=== PATIENT | male | born 1995 | race Caucasian/White ===

== ENCOUNTER 2016-07-27 14:54 | Emergency (ER) | payer BC, OTHER ==
--- NOTE | 2016-07-27 16:20 | EDM.PDOC ---
ED HPI RENAL/ - General Chief Complaint: Abdominal Pain Stated Complaint: RT SIDE PAIN Time Seen by Provider: 07/27/16 16:10 Source: Reports: Patient History Limitations: Reports: No limitations - History of Present Illness INITIAL COMMENTS - FREE TEXT/NARRATIVE: Jaren has sxs of R mid-lower abdominal pain that has colicky features over the past 4 weeks, with some radiation into the R teste. Today at the Clinic, his UA noted 4+ blood with protein. He has some burning with urination. An ultrasound of the abdomen confirmed a small stone on the R side, report unavailable as of this visit. He has an appt to see PCP this afternoon. He is currently asx. - Related Data Allergies/ADRs: Allergies Allergy/AdvReac Type Severity Reaction Status Date / Time No Known Allergies Allergy Verified 07/27/16 15:22 Home Meds: Home Meds NK [No Known Home Meds] 12/09/13 [History] Past Medical History - Past Health History Medical/Surgical History: Denies Medical/Surgical History - Infectious Disease History Infectious Disease History: Reports: Chicken pox Social & Family History - Tobacco Use Smoking Status *Q: Current Some Day Smoker Years of Tobacco use: 5 Packs/Tins Daily: 1 - Caffeine Use Caffeine Use: Reports: Energy drinks, Soda - Alcohol Use Number of Drinks Per Day: 8 - Recreational Drug Use Recreational Drug Use: No - Living Situation & Occupation Living situation: Reports: single ED ROS GENERAL - Review of Systems Review Of Systems: See Below Constitutional: Reports: no symptoms HEENT: Reports: No symptoms Respiratory: Reports: No Symptoms Cardiovascular: Reports: No symptoms Endocrine: Reports: no symptoms GI/Abdominal: Reports: Abdominal pain : Reports: other (pain in R teste) Musculoskeletal: Reports: no symptoms Skin: Reports: no symptoms Neurological: Reports: No Symptoms Psychiatric: Reports: No symptoms Hematologic/Lymphatic: Reports: no symptoms Immunologic: Reports: no symptoms ED EXAM, RENAL/ - Physical Exam Exam: See Below Exam Limited By: No limitations General Appearance: alert, WD/WN, no apparent distress Head: normocephalic Neck: normal inspection Respiratory/Chest: lungs clear Cardiovascular: regular rate, rhythm GI/Abdominal: normal bowel sounds, soft, no organomegaly, no distention, no mass , tender (mild tenderness RLQ) (Male) Exam: No hernia Rectal (Males) Exam: Deferred Back Exam: normal inspection Extremities: normal inspection Neurological: alert, oriented Psychiatric: normal affect, normal mood Skin Exam: Warm, Dry Lymphatic: no adenopathy Course - Vital Signs Text/Narrative:: Jaren was asx in the [facility] ED. No meds were administered. Last Recorded V/S: Last Vital Signs Temp 36.8 C 07/27/16 15:27 Pulse 80 07/27/16 15:27 Resp 20 07/27/16 15:27 BP 126/99 H 07/27/16 15:27 Pulse Ox 98 07/27/16 15:27 - Orders/Labs/Meds Orders: Active Orders 24 hr Category Date Time Status UA W/MICROSCOPIC [URIN] Stat Lab 07/27/16 15:23 Uncollected Departure - Departure Time of Disposition: 16:20 Disposition: Home, Self-Care 01 Condition: good Clinical Impression: Ureterolithiasis Forms: ED Department Discharge - Problem List & Annotations (1) Ureterolithiasis SNOMED Code(s): 08522293 Code(s): N20.1 - CALCULUS OF URETER Status: Acute Current Visit: Yes Annotation/Comment:: Follow up with PCP. - Problem List Review Problem List Initiated/Reviewed/Updated: Yes - My Orders Last 24 Hours: My Active Orders 07/27/16 15:23 UA W/MICROSCOPIC [URIN] Stat - Assessment/Plan Last 24 Hours: My Active Orders 07/27/16 15:23 UA W/MICROSCOPIC [URIN] Stat Plan: Follow up with referral to Urology.
[2016-07-27 16:24] VITALS: BP 125/78
== END 2016-07-27 16:20 | disposition home or self-care (01) ==
LOC: FB.ED 14:54
DX: N20.1 Calculus of ureter (principal); F17.210 Nicotine dependence, cigarettes, uncomplicated
CPT/HCPCS: 99284

== ENCOUNTER 2016-08-14 00:26 | Emergency (ER) | payer OTHER ==
[2016-08-14] MEDS ORDERED: Ondansetron 4 MG/2 ML SDV IVPUSH ONE (00:43)
[2016-08-14] MEDS ORDERED: Sodium Chloride 0.9% 1,000 ML IV SCH ×2 (01:00→02:30)
[2016-08-14] MEDS ORDERED: HYDROmorphone 2 MG/ML SDV IVPUSH ONE (01:14)
[2016-08-14 02:20] VITALS: BP 124/72
[2016-08-14] MEDS ORDERED: Ketorolac 30 MG/ML SDV IVPUSH ONE (02:20)
[2016-08-14] MEDS ORDERED: Acetaminophen/HYDROcodone 325-5 MG Tab PO ONE (02:39)
[2016-08-14] MEDS ORDERED: fentaNYL 100 MCG/2 ML SDV IVPUSH ONE (02:49)
[2016-08-14] MEDS ORDERED: HYDROmorphone 2 MG/ML SDV IVPUSH PRN (02:51)
[2016-08-14] MEDS ORDERED: Ondansetron 4 MG/2 ML SDV IV PRN (02:51)
--- NOTE | 2016-08-14 04:12 | ER ---
DATE SEEN: 08/14/2016 CHIEF COMPLAINT: Left lower quadrant abdominal pain. HISTORY OF PRESENT ILLNESS: This is a 21-year-old male with left flank pain since this morning. [id number] pain, nothing seems to improve it. Has had hematuria on and off for 2 months, and was in the ER 2 weeks ago due to acute ureterolithiasis. No fever or chills. REVIEW OF SYSTEMS: Has nausea, 1 episode of vomiting, and some constipation. CURRENT MEDICATIONS: Tylenol No. 3. ALLERGIES: None. PHYSICAL EXAMINATION: GENERAL: Appears very uncomfortable. VITAL SIGNS: His blood pressure is normal. His temperature is 98.6. ABDOMEN: Soft with tenderness in the left lower quadrant. SKIN: Pale. LABORATORY DATA: CBC and CMP normal. CT abdomen and pelvis revealed a 3 to 4 mm sized ureteric stone. IMPRESSION: Kidney stone. PLAN: 2 L of normal saline, 2 mg of IV Dilaudid, Toradol 30 mg. The patient will be sent home on hydrocodone to use as needed. See Dr. Pavon on Monday. \ ED COURSE Patient initially was extremely anxious,pain was uncontrolled. We wmade a decision to admit him for pain control. After an hour,his pain was stable enough ,so the admission was cancelled TIME SEEN: 0100 hours. /[id number] TA/VENITA FERRIS
== END 2016-08-14 04:10 | disposition home or self-care (01) ==
LOC: FB.ED 00:26 → UNDOADMOB 02:51 → FB.MS 02:51 → FB.ED 04:10
DX: N13.2 Hydronephrosis with renal and ureteral calculous obstruction (principal)
CPT/HCPCS: 36415; 74177; 80048; 80305; 81001; 85025; 96361; 96374; 96375; 99284; A9270; J1170; J1885; J2405; J7040

== ENCOUNTER 2016-08-17 02:39 | Emergency (ER) | payer OTHER ==
[2016-08-17] MEDS ORDERED: Ondansetron 4 MG/2 ML SDV IVPUSH ONE (02:49)
[2016-08-17] MEDS ORDERED: fentaNYL 100 MCG/2 ML SDV IVPUSH ONE (02:50)
[2016-08-17] MEDS ORDERED: Sodium Chloride 0.9% 1,000 ML IV SCH (03:00)
[2016-08-17 03:20] VITALS: BP 129/99
[2016-08-17] MEDS ORDERED: Ketorolac 10 MG Tab PO ONE (04:12)
--- NOTE | 2016-08-18 03:01 | ER ---
DATE SEEN: 08/17/2016 REASON FOR VISIT: Left lower quadrant abdominal pain. HISTORY OF PRESENT ILLNESS: A 21-year-old male, whom I saw recently for ureteric calculi on the left side. After 2 L of fluids, he went home, but he returns today because the pain has returned few hours ago. Hydrocodone is not helping. It is exactly located in the same place in the left lower quadrant. Please see the note from 08/13/2016. REVIEW OF SYSTEMS: Some nausea. Denies any fever, chills, diarrhea. MEDICATIONS: Reviewed. ALLERGIES: None. PHYSICAL EXAMINATION: VITAL SIGNS: Blood pressure is normal. Temperature is 97.3. MENTAL STATUS: Anxious. SKIN: Pallor and clammy skin. GENERAL: Appears uncomfortable. NEUROLOGIC: Normal. LABORATORY DATA: None. IMPRESSION: Ureteric calculi. PLAN: I gave one more liter of normal saline, 100 mcg of fentanyl and Zofran IV. His symptoms improved. I will send him home on 10 mg of Toradol t.i.d. p.r.n. He had an appointment with Urology yesterday which he did not keep. I advised him to call and reschedule as needed. TIME SEEN: 0230 hours. /[id number] TA/VENITA
== END 2016-08-17 04:20 | disposition home or self-care (01) ==
LOC: FB.ED 02:39
DX: N20.1 Calculus of ureter (principal)
CPT/HCPCS: 96361; 96374; 96375; 99283; A9270; J2405; J3010; J7040

== ENCOUNTER 2017-09-08 04:02 | Emergency (ER) | payer OTHER ==
--- NOTE | 2017-09-08 04:22 | EDM.PDOC ---
ED HPI GENERAL MEDICAL PROBLEM - General Chief Complaint: Genitourinary Problem Stated Complaint: LOWER BACK PAIN Time Seen by Provider: 09/08/17 04:21 Source of Information: Reports: Patient, Family History Limitations: Reports: No Limitations - History of Present Illness INITIAL COMMENTS - FREE TEXT/NARRATIVE: Jaren comes into [facility] ED with acute onset of RLQ pain with radiation into RCVA and R teste. Pain is colicky in nature, without vomiting or diarrhea. He has tried no meds. Of interest is a PMH of L ureterolithiasis during July 2016, for which he passed an opaque stone. - Related Data Allergies Allergy/AdvReac Type Severity Reaction Status Date / Time No Known Allergies Allergy Verified 08/17/16 02:53 Home Meds: Home Meds Hydrocodone/Acetaminophen [Hydrocodon-Acetaminophen 5-325] 1 tab Q4H PRN [History] Tamsulosin HCl [Flomax] 0.4 mg PO DAILY #7 cap.er.24h 09/08/17 [Rx] Past Medical History - Past Health History Medical/Surgical History: Denies Medical/Surgical History Respiratory History: Reports: Asthma Genitourinary History: Reports: Renal Calculus Other Genitourinary History: L kidney stones. Neurological History: Reports: Migraines - Infectious Disease History Infectious Disease History: Reports: Chicken Pox Social & Family History - Family History Family Medical History: Noncontributory - Caffeine Use Caffeine Use: Reports: Soda Other Caffeine Use: Pt drinks two cups of coffee. - Living Situation & Occupation Living situation: Reports: Single ED ROS GENERAL - Review of Systems Review Of Systems: See Below Constitutional: Reports: Malaise, Decreased Appetite HEENT: Reports: No Symptoms Respiratory: Reports: No Symptoms Cardiovascular: Reports: No Symptoms Endocrine: Reports: No Symptoms GI/Abdominal: Reports: Abdominal Pain, Decreased Appetite : Reports: Pain, Other (R CVA pain) Musculoskeletal: Reports: No Symptoms Skin: Reports: No Symptoms Neurological: Reports: No Symptoms Psychiatric: Reports: No Symptoms Hematologic/Lymphatic: Reports: No Symptoms Immunologic: Reports: No Symptoms ED EXAM, RENAL/ - Physical Exam Exam: See Below Exam Limited By: Physical Impairment General Appearance: Alert, WD/WN, Anxious, Moderate Distress Eye Exam: Bilateral Eye: EOMI, Normal Inspection, PERRL Ears: Normal External Exam Nose: Normal Inspection Throat/Mouth: Normal Inspection, Normal Oropharynx, Normal Voice Head: Normocephalic Neck: Normal Inspection, Supple Respiratory/Chest: Lungs Clear Cardiovascular: Regular Rate, Rhythm, No Murmur GI/Abdominal: Normal Bowel Sounds, Soft, Guarding, Tender (RLQ and R lower back) (Male) Exam: No Hernia Rectal (Males) Exam: Deferred Back Exam: Normal Inspection Extremities: Normal Inspection Neurological: Alert, Oriented, CN II-XII Intact, Normal Cognition, No Motor/ Sensory Deficits Psychiatric: Anxious Skin Exam: Warm, Dry, Intact Lymphatic: No Adenopathy Course - Vital Signs Text/Narrative:: Screening lab reports were satisfactory, UA pending. A Abd-Pelvic CT w contrast demonstrated a 2 mm stone in the R ureter, and 2 small stones in the L kidney. I administered Dilaudid 2 mg x 2 and Flomax 0.4 mg po during ED visit. Last Recorded V/S: Last Vital Signs Temp 36.2 C 09/08/17 04:08 Pulse 81 09/08/17 04:08 Resp 16 09/08/17 04:08 BP 153/103 H 09/08/17 04:08 Pulse Ox 99 09/08/17 04:08 - Orders/Labs/Meds Orders: Active Orders 24 hr Category Date Time Status Abdomen Pelvis wo Cont [CT] Stat Exams 09/08/17 05:31 Taken UA W/MICROSCOPIC [URIN] Stat Lab 09/08/17 04:20 Ordered Sodium Chloride 0.9% [Normal Saline] 1,000 ml Med 09/08/17 04:30 Active IV ASDIRECTED Sodium Chloride 0.9% [Normal Saline] 1,000 ml Med 09/08/17 05:45 Active IV ASDIRECTED Sodium Chloride 0.9% [Saline Flush] Med 09/08/17 04:27 Active 10 ml FLUSH ASDIRECTED PRN Peripheral IV Insertion Adult [OM.PC] Routine Oth 09/08/17 04:27 Ordered Medication Orders Sodium Chloride (Normal Saline) 1,000 mls @ 999 mls/hr IV ASDIRECTED YOMAIRA Last Admin: 09/08/17 04:38 Dose: 999 mls/hr Sodium Chloride (Normal Saline) 1,000 mls @ 500 mls/hr IV ASDIRECTED YOMAIRA Last Admin: 09/08/17 05:38 Dose: 500 mls/hr Sodium Chloride (Saline Flush) 10 ml FLUSH ASDIRECTED PRN PRN Reason: Keep Vein Open Labs: Laboratory Tests 09/08/17 09/08/17 Range/Units 04:35 04:35 WBC 12.0 (4.5-12.0) X10-3/uL RBC 5.20 (4.30-5.75) x10(6)uL Hgb 16.1 H (11.5-15.5) g/dL Hct 48.0 (30.0-51.3) % MCV 92.3 (80-96) fL MCH 31.0 (27.7-33.6) pg MCHC 33.6 (32.2-35.4) g/dL RDW 13.0 (11.5-15.5) % Plt Count 266 (125-369) X10(3)uL MPV 8.4 (7.4-10.4) fL Neut % (Auto) 55.8 (46-82) % Lymph % (Auto) 31.5 (13-37) % Frio % (Auto) 6.5 (4-12) % Eos % (Auto) 6 H (1.0-5.0) % Baso % (Auto) 1 (0-2) % Neut # (Auto) 6.6 (1.6-8.3) # Lymph # (Auto) 3.8 (0.6-5.0) # Frio # (Auto) 0.8 (0.0-1.3) # Eos # (Auto) 0.7 (0.0-0.8) # Baso # (Auto) 0.1 (0.0-0.2) # Sodium 141 (135-145) mmol/L Potassium 4.2 (3.5-5.3) mmol/L Chloride 105 (100-110) mmol/L Carbon Dioxide 28 (21-32) mmol/L BUN 16 (7-18) mg/dL Creatinine 0.9 (0.70-1.30) mg/dL Est Cr Clr Drug Dosing TNP Estimated GFR (MDRD) > 60 (>60) BUN/Creatinine Ratio 17.8 (9-20) Glucose 102 (80-116) mg/dL Calcium 8.9 (8.6-10.2) mg/dL Meds: Medications Generic Name Dose Route Start Last Admin Trade Name Freq PRN Reason Stop Dose Admin Sodium Chloride 1,000 mls @ 999 mls/hr 09/08/17 04:30 09/08/17 04:38 Normal Saline IV 999 mls/hr ASDIRECTED YOMAIRA Administration Sodium Chloride 1,000 mls @ 500 mls/hr 09/08/17 05:45 09/08/17 05:38 Normal Saline IV 500 mls/hr ASDIRECTED YOMAIRA Administration Sodium Chloride 10 ml 09/08/17 04:27 Saline Flush FLUSH ASDIRECTED PRN Keep Vein Open Discontinued Medications Generic Name Dose Route Start Last Admin Trade Name Freq PRN Reason Stop Dose Admin Hydromorphone HCl 2 mg 09/08/17 04:27 09/08/17 04:45 Dilaudid IVPUSH 09/08/17 04:28 2 mg ONETIME ONE Administration Hydromorphone HCl 2 mg 09/08/17 06:22 09/08/17 06:26 Dilaudid IVPUSH 09/08/17 06:23 2 mg ONETIME ONE Administration Tamsulosin HCl 0.4 mg 09/08/17 06:30 09/08/17 06:36 Flomax PO 09/08/17 06:31 0.4 mg ONETIME ONE Administration Departure - Departure Time of Disposition: 06:39 Disposition: Home, Self-Care 01 Condition: Fair Clinical Impression: Ureterolithiasis - Discharge Information Prescriptions: Tamsulosin HCl [Flomax] 0.4 mg PO DAILY #7 cap.er.24h Referrals: Cole Pavon MD [Primary Care Provider] - Forms: ED Department Discharge - Problem List & Annotations (1) Ureterolithiasis SNOMED Code(s): 42698132 Code(s): N20.1 - CALCULUS OF URETER Status: Acute Current Visit: Yes Annotation/Comment:: I suggested NSAIDs for pain, dispensed Flomax 0.4 mg qd, and hydration. Strain all urine. - Problem List Review Problem List Initiated/Reviewed/Updated: Yes - My Orders Last 24 Hours: My Active Orders 09/08/17 04:20 UA W/MICROSCOPIC [URIN] Stat 09/08/17 04:27 Sodium Chloride 0.9% [Saline Flush] 10 ml FLUSH ASDIRECTED PRN Peripheral IV Insertion Adult [OM.PC] Routine 09/08/17 04:30 Sodium Chloride 0.9% [Normal Saline] 1,000 ml IV ASDIRECTED 09/08/17 05:31 Abdomen Pelvis wo Cont [CT] Stat 09/08/17 05:45 Sodium Chloride 0.9% [Normal Saline] 1,000 ml IV ASDIRECTED - Assessment/Plan Last 24 Hours: My Active Orders 09/08/17 04:20 UA W/MICROSCOPIC [URIN] Stat 09/08/17 04:27 Sodium Chloride 0.9% [Saline Flush] 10 ml FLUSH ASDIRECTED PRN Peripheral IV Insertion Adult [OM.PC] Routine 09/08/17 04:30 Sodium Chloride 0.9% [Normal Saline] 1,000 ml IV ASDIRECTED 09/08/17 05:31 Abdomen Pelvis wo Cont [CT] Stat 09/08/17 05:45 Sodium Chloride 0.9% [Normal Saline] 1,000 ml IV ASDIRECTED Plan: Follow up with PCP.
[2017-09-08] MEDS ORDERED: HYDROmorphone 2 MG/ML SDV IVPUSH ONE ×2 (04:27→06:22)
[2017-09-08] MEDS ORDERED: Sodium Chloride 0.9% 10 ML Syringe FLUSH PRN (04:27)
[2017-09-08] MEDS ORDERED: Sodium Chloride 0.9% 1,000 ML IV SCH ×2 (04:30→05:45)
[2017-09-08] MEDS ORDERED: Tamsulosin 0.4 MG Cap.ER PO ONE (06:30)
[2017-09-08] MEDS ORDERED: Ondansetron 4 MG Tab.DIS PO ONE (06:53)
[2017-09-08 07:24] VITALS: BP 145/95
== END 2017-09-08 07:00 | disposition home or self-care (01) ==
LOC: FB.ED 04:02
DX: N13.2 Hydronephrosis with renal and ureteral calculous obstruction (principal); Z79.899 Other long term (current) drug therapy
CPT/HCPCS: 36415; 74176; 80048; 85025; 96361; 96374; 96376; 99284; A9270; J1170; J7030

== ENCOUNTER 2017-09-15 21:33 | Emergency (ER) | payer OTHER ==
[2017-09-15] MEDS ORDERED: Ketorolac 30 MG/ML SDV IVPUSH ONE (22:26)
[2017-09-15] MEDS ORDERED: Sodium Chloride 0.9% 1,000 ML IV SCH (22:30)
[2017-09-15] MEDS ORDERED: Sodium Chloride 0.9% 10 ML Syringe FLUSH PRN (22:33)
[2017-09-15] MEDS ORDERED: Morphine 2 MG/ML Syringe IVPUSH PRN (23:12)
[2017-09-15] MEDS ORDERED: Metoclopramide 10 MG/2 ML SDV IVPUSH ONE (23:13)
[2017-09-15] MEDS ORDERED: Tamsulosin 0.4 MG Cap.ER PO ONE (23:13)
[2017-09-15] MEDS ORDERED: Acetaminophen/oxyCODONE 325-5 MG Tab PO ONE (23:37)
[2017-09-16 00:19] VITALS: BP 124/71
--- NOTE | 2017-09-18 10:55 | ER ---
DATE SEEN: 09/15/2017 TIME SEEN: The patient was seen at 2145 hours. HISTORY OF PRESENT ILLNESS: This pleasant 22-year-old nonsmoking male comes in with a history of onset of kidney pain with renal stone, onset 0400 hours, 09/07/2017. This had been followed by passing a stone later that day after he had taken Flomax. He has not taken Flomax since. Since then, he was seen in clinic on 09/12. He did not feel very well and it was thought by the clinician to be secondary to low blood glucose. He was again seen in clinic on 09/14 and again thought to have low glucose as he was waking up early in the morning and his glucose was low. His diet has not changed. On 09/13, he had more recurrence of pain. On 09/15 today, has 10/10 discomfort, onset at approximately 1800 hours tonight, it was earlier on 08/03, but has increased to 10/10. He knows that he has pain in his penis. He has pain when he tries to pass urine. He is able to pass urine and his stream is not compromised, but he has pain in his proximal penis. He also has right flank pain this evening that is 8/10 in intensity, not as bad as it was "last week." One year ago, had a renal stone. On 08/24/2016, he had a small right ureteral stone documented on ultrasound. More recently, on 09/07/17, on reviewing the CAT scan, he has 2 stones in his left kidney and 3 stones in his right kidney, and particularly on that day had a right ureteral stone approximately 7 cm from the ureterovesical junction. ALLERGIES: None. He notes the last time he was in the hospital in the emergency room on the day that he had stones discomfort on 09/07, he received intravenous Dilaudid and he vomited for 18 to 20 hours. He has medical intolerance of Dilaudid and does not want any Dilaudid today for pain medicine. The patient notes that he has not been drinking adequate fluids. He does not drink 2 quarts of fluids a day. He works in a fairly warm environment at [employer], which is a [employer] and he acknowledges he has not been hydrating himself adequately with this warm weather. He has not had Flomax since 09/07/2017. REVIEW OF SYSTEMS: Otherwise is negative. PHYSICAL EXAMINATION: VITAL SIGNS: Blood pressure is 136/78; heart rate 81; respirations 18; oxygen saturation 100%-98%, no oxygen, the patient on room air; and temperature is 36.7 degrees centigrade. GENERAL: The patient has marked pain. He is in a position. He is attended by his . HEENT: PERRLA intact. Pupils react to light. Not pinpoint. Pharynx without abnormality, mild dry oral mucosa. No cervical adenopathy, thyromegaly, or masses of neck. No bruits. No tracheal tug. LUNGS: Clear without rales, rhonchi, or wheezes. HEART: S1, S2. No murmur. No irregularity and rhythm. No tachycardia. ABDOMEN: Soft. No guarding, no rebound. Right flank is tender to percussion, 8/10 discomfort. He has mild left flank discomfort. Bowel sounds are present in the abdomen and no hernia demonstrated. : Testes bilaterally descended. Penis circumcised. EXTREMITIES: Lower extremities without abnormality. Deep tendon reflexes normal. ADDITIONAL IMPORTANT COMMENTS: Brother was diagnosed with testicular cancer and had a right orchiectomy. Mother and father are healthy. LABORATORY FINDINGS: White count 12,200, PMNs 57, lymphocytes 32, monos 6, eosinophils 6. Complete metabolic panel normal with a GFR greater than 60 and a creatinine 1.0, BUN 17. ASSESSMENT: 1. The patient has recurrent pain that would suggest he has passed the stone into his bladder and he has a stone that was documented 2 mm before on 09/07/2017. Perhaps, this was stuck up in the urethra. At this point, it is difficult to ascertain. He has had 3 CAT scans before this, consequently with a history of chronic recurrent intermittent stones, I prefer not to treat him, not to perform another CAT scan as he is not in extremis nor is he febrile at this point. Consequently, immediate intervention is not indicated. 2. He has multiple stones in his kidney, right were 3 and left 2 - he is a stone former. 3. Most likely, he has passed the right ureteral stone that was seen on 09/07/2017 into the bladder as his right flank pain relented. 4. He has passed the stone before, tried to get it analyzed, but he lost it and fell on the floor and could not find it, so we do not know what kind of stones he is forming. It is presumed that it is calcium oxalate (80% to 85%) stones. 5. The patient does not have sepsis or infection. Consequently, probably could manage at home. 6. At present, he did not respond to a dose of Toradol. Consequently, he has been given a dose of 2 mg morphine. He will use Toradal as needed and also given a dose of Flomax 0.4 mg. He is to strain his urine, bring his urine specimen stone to the hospital when collected. 7. It is possible he may not pass his renal stone and may require further urology consultation. At this point, the patient would like to be conservative in his intervention and would try to pass the stone. He is willing to go home and take pain medicines and strain his urine with use of Flomax. I am optimistic that perhaps he will be able to pass the stone. 8. It is very likely to have recurrent intermittent stones in the future, so it is important that he has analysis of his stones. 9. Dilaudid - hx of chemical reaction of marked violent vomiting. He is chemically allergic to Dilaudid. 10.His brother had testicular cancer. The patient testicular examination demonstrates orchiectomy to and no masses were demonstrated. At this point, no suggestion of urinary tract infection. The patient dismissed to follow with doctor in 24 to 72 hours if markedly worse, otherwise, in 1 week. The patient will attempt to try to pass the stone if this is unmanageable for him. He will be returning for further evaluation and possible urological consultation on an emergent basis. /[id number] LORA/VENITA FERRIS
== END 2017-09-16 00:57 | disposition home or self-care (01) ==
LOC: FB.ED 21:33
DX: N20.2 Calculus of kidney with calculus of ureter (principal); Z87.442 Personal history of urinary calculi
CPT/HCPCS: 36415; 80053; 81001; 85025; 96361; 96374; 96375; 99283; A9270; J1885; J2270; J2765; J7030; J7050

== ENCOUNTER 2019-01-02 07:14 | Day surgery (SDC) | payer BC, OTHER ==
[2019-01-02] MEDS ORDERED: Lidocaine 2% 100 MG/5 ML Syringe IVPUSH ONE (07:15)
[2019-01-02] MEDS ORDERED: Ondansetron 4 MG/2 ML SDV IVPUSH ONE (07:15)
[2019-01-02] MEDS ORDERED: Propofol 200 MG/20 ML SDV IV ONE (07:15)
[2019-01-02] MEDS ORDERED: Sodium Chloride 0.9% 10 ML Syringe FLUSH PRN (07:15)
[2019-01-02] MEDS ORDERED: Lactated Ringers 1,000 ML IV SCH (07:15)
--- NOTE | 2019-01-02 08:48 | PCM.OPNOTE ---
- General Post-Op/Procedure Note Date of Surgery/Procedure: 01/02/19 Operative Procedure(s): egd with bx Findings: gastritis Pre Op Diagnosis: hematemasis Post-Op Diagnosis: gastritis Anesthesia Technique: MAC Primary Surgeon: Avi Bartholomew Anesthesia Provider: Jayashree Brown Pathology: stomach Complications: None Condition: Good Free Text/Narrative:: see dictation
[2019-01-02 09:51] VITALS: BP 123/75; PULSE 60
--- NOTE | 2019-01-02 11:38 | OR ---
DATE OF OPERATION: 01/02/2019 SURGEON: Avi Bartholomew MD PROCEDURE PERFORMED: EGD with cold forceps biopsy. PREOPERATIVE DIAGNOSIS: History of hematemesis. POSTOPERATIVE DIAGNOSIS: Gastritis determined by endoscopy. INDICATIONS FOR PROCEDURE: This is a 23-year-old white male who was referred with some history of some epigastric discomfort, some nausea, as well as some bloody emesis. He was offered and accepted an EGD. DESCRIPTION OF OPERATION: After an excellent IV sedation was administered, the bite block was inserted. The flexible endoscope was passed without difficulty down the patient's esophagus into the stomach. Stomach was insufflated. Scope passed through the pylorus, second portion of the duodenum, and slowly withdrawn. The following findings were noted. The duodenum was unremarkable. The stomach demonstrated some mild gastritis in the stomach. Biopsies were taken. GE junction measured at 40 cm. Esophagus was unremarkable. Stomach was deflated. Scope was removed. Results by letter. /[id number] /MODL
== END 2019-01-02 09:51 | disposition home or self-care (01) ==
LOC: FB.SDS 07:14
PROVIDERS: ATTEND Surgery
DX: K29.51 Unspecified chronic gastritis with bleeding (principal); K31.89 Other diseases of stomach and duodenum; J45.909 Unspecified asthma, uncomplicated; F17.290 Nicotine dependence, other tobacco product, uncomplicated
CPT/HCPCS: 43239; 88305; 88342; J2001; J2405; J2704; J7120

== ENCOUNTER 2019-06-04 03:41 | Emergency (ER) | payer BC ==
[2019-06-04] MEDS ORDERED: Tamsulosin 0.4 MG Cap.ER PO ONE (04:11)
[2019-06-04] MEDS ORDERED: Sodium Chloride 0.9% 1,000 ML IV SCH ×2 (04:15→06:15)
[2019-06-04] MEDS ORDERED: methylPREDNISolone Sodium Succinate 125 MG/2 ML SDV IVPUSH ONE (04:21)
[2019-06-04] MEDS: HYDROmorphone 2 MG/ML SDV IVPUSH ONE ×2 (04:35→04:43)
[2019-06-04] MEDS ORDERED: Morphine 2 MG/ML Syringe IVPUSH STA (04:43)
[2019-06-04 05:01] VITALS: BP 138/84; PULSE 69
--- NOTE | 2019-06-04 06:35 | EDM.PDOC ---
ED HPI GENERAL MEDICAL PROBLEM - General Chief Complaint: Genitourinary Problem Stated Complaint: groin pain Time Seen by Provider: 06/04/19 04:00 Source of Information: Reports: Patient History Limitations: Reports: No Limitations - History of Present Illness INITIAL COMMENTS - FREE TEXT/NARRATIVE: pain in the left flank radiating to the left groin states it pains up to the tip of mihai penis no dysuria , no hematuria states he has history of renal calculi Duration: Hour(s): Quality: Reports: Ache, Dull, Throbbing Severity: Moderate Improves with: Reports: Heat Therapy Worsens with: Reports: Movement Associated Symptoms: Reports: Malaise, Nausea/Vomiting penis Pain Score (Numeric/FACES): 3 - Related Data Allergies Allergy/AdvReac Type Severity Reaction Status Date / Time No Known Allergies Allergy Verified 01/02/19 07:27 Home Meds: Home Meds Tamsulosin HCl [Flomax] 0.4 mg PO DAILY #30 cap.er.24h 06/04/19 [Rx] Past Medical History - Past Health History Medical/Surgical History: Denies Medical/Surgical History HEENT History: Reports: Allergic Rhinitis, Impaired Vision Cardiovascular History: Reports: None Respiratory History: Reports: Asthma Gastrointestinal History: Reports: None Genitourinary History: Reports: Renal Calculus Other Genitourinary History: L kidney stones. Musculoskeletal History: Reports: None Neurological History: Reports: Migraines Psychiatric History: Reports: None Endocrine/Metabolic History: Reports: None Hematologic History: Reports: None Immunologic History: Reports: None Oncologic (Cancer) History: Reports: None Dermatologic History: Reports: None - Infectious Disease History Infectious Disease History: Reports: Chicken Pox - Past Surgical History Head Surgeries/Procedures: Reports: None HEENT Surgical History: Reports: None Cardiovascular Surgical History: Reports: None Respiratory Surgical History: Reports: None GI Surgical History: Reports: None Male Surgical History: Reports: None Endocrine Surgical History: Reports: None Neurological Surgical History: Reports: None Musculoskeletal Surgical History: Reports: None Oncologic Surgical History: Reports: None Dermatological Surgical History: Reports: None Social & Family History - Family History Family Medical History: Noncontributory - Tobacco Use Smoking Status *Q: Current Every Day Smoker Years of Tobacco use: 0 Packs/Tins Daily: 0 - Caffeine Use Caffeine Use: Reports: Coffee, Soda Other Caffeine Use: Pt drinks two cups of coffee. - Recreational Drug Use Recreational Drug Use: No - Living Situation & Occupation Living situation: Reports: Single ED ROS GENERAL - Review of Systems Review Of Systems: Comprehensive ROS is negative, except as noted in HPI. ED EXAM, RENAL/ - Physical Exam Exam: See Below Exam Limited By: No Limitations General Appearance: Alert, WD/WN, No Apparent Distress Eye Exam: Bilateral Eye: EOMI Ears: Normal External Exam Nose: Normal Inspection Throat/Mouth: Normal Inspection, Normal Oropharynx Head: Atraumatic Neck: Supple, Non-Tender Respiratory/Chest: Lungs Clear, Normal Breath Sounds Cardiovascular: Regular Rate, Rhythm GI/Abdominal: No Distention, Tender (in the left flank). No: Distended, Guarding, Hernia (Male) Exam: No Hernia, Scrotum Tenderness (R). No: Scrotum Tenderness (L), Suprapubic Fullness, Testicular Tenderness (R) Extremities: Normal Inspection Neurological: Alert, Oriented Psychiatric: Normal Affect Course - Vital Signs Last Recorded V/S: Last Vital Signs Temp 36.4 C 06/04/19 03:54 Pulse 69 06/04/19 03:54 Resp 14 06/04/19 03:54 BP 138/84 06/04/19 03:54 Pulse Ox 100 06/04/19 03:54 - Orders/Labs/Meds Orders: Active Orders 24 hr Category Date Time Status Abdomen Pelvis w Cont [CT] Stat Exams 06/04/19 04:29 Taken Labs: Laboratory Tests 06/04/19 06/04/19 06/04/19 Range/Units 04:40 04:40 06:02 WBC 7.9 (4.5-12.0) X10-3/uL RBC 4.87 (4.30-5.75) x10(6)uL Hgb 14.7 (13.5-17.8) g/dL Hct 44.6 (30.0-51.3) % MCV 91.5 (80-96) fL MCH 30.2 (27.7-33.6) pg MCHC 33.0 (32.2-35.4) g/dL RDW 12.8 (11.5-15.5) % Plt Count 272 (125-369) X10(3)uL MPV 7.7 (7.4-10.4) fL Neut % (Auto) 57.0 (46-82) % Lymph % (Auto) 29.5 (13-37) % [place] % (Auto) 7.0 (4-12) % Eos % (Auto) 5 (1.0-5.0) % Baso % (Auto) 2 (0-2) % Neut # (Auto) 4.5 (1.6-8.3) # Lymph # (Auto) 2.3 (0.6-5.0) # [place] # (Auto) 0.6 (0.0-1.3) # Eos # (Auto) 0.4 (0.0-0.8) # Baso # (Auto) 0.1 (0.0-0.2) # Sodium 142 (135-145) mmol/L Potassium 4.4 (3.5-5.3) mmol/L Chloride 106 (100-110) mmol/L Carbon Dioxide 29 (21-32) mmol/L BUN 11 (7-18) mg/dL Creatinine 0.9 (0.70-1.30) mg/dL Est Cr Clr Drug Dosing TNP Estimated GFR (MDRD) > 60 (>60) BUN/Creatinine Ratio 12.2 (9-20) Glucose 91 (80-116) mg/dL Calcium 8.9 (8.6-10.2) mg/dL Urine Color Yellow (YELLOW) Urine Appearance Cloudy (CLEAR) Urine pH 6.0 (5.0-6.5) Ur Specific [place] 1.020 (1.010-1.025) Urine Protein Negative (NEGATIVE) mg/dL Urine Glucose (UA) Normal (NORMAL) mg/dL Urine Ketones Negative (NEGATIVE) mg/dL Urine Occult Blood Large H (NEGATIVE) Urine Nitrite Negative (NEGATIVE) Urine Bilirubin Negative (NEGATIVE) Urine Urobilinogen Normal (NEGATIVE) mg/dL Ur Leukocyte Esterase Negative (NEGATIVE) Urine RBC >100 H (0-5) Urine WBC 0-5 (0-5) Ur Squamous Epith Cells Few H (NS,R,O) Urine Bacteria Few H (NS) Urine Mucus Moderate H (NS) Meds: Medications Discontinued Medications Generic Name Dose Route Start Last Admin Trade Name Freq PRN Reason Stop Dose Admin Hydromorphone HCl 1 mg 06/04/19 04:31 06/04/19 04:43 Dilaudid IVPUSH 03/10/20 04:32 Not Given ONETIME ONE Sodium Chloride 1,000 mls @ 999 mls/hr 06/04/19 04:15 06/04/19 04:33 Normal Saline IV 999 mls/hr ASDIRECTED YOMAIRA Administration Sodium Chloride 1,000 mls @ 999 mls/hr 06/04/19 06:15 06/04/19 06:07 Normal Saline IV 999 mls/hr ASDIRECTED YOMAIRA Administration Methylprednisolone Sodium Succinate 125 mg 06/04/19 04:21 06/04/19 04:33 Solu-Medrol IVPUSH 06/04/19 04:22 125 mg ONETIME ONE Administration Morphine Sulfate 1 mg 06/04/19 04:43 06/04/19 04:49 Morphine IVPUSH 06/04/19 04:44 1 mg NOW STA Administration Tamsulosin HCl 0.4 mg 06/04/19 04:11 06/04/19 04:33 Flomax PO 06/04/19 04:12 0.4 mg ONETIME ONE Administration - Re-Assessments/Exams Free Text/Narrative Re-Assessment/Exam: 06/04/19 18:59 CT abd done: renal calculi in the UVJ or bladder pt given fluids will discharge home on flomax and to FU w PCP Departure - Departure Time of Disposition: 06:35 Disposition: Home, Self-Care 01 Condition: Fair Clinical Impression: Kidney stone, Calculus of left kidney - Discharge Information *PRESCRIPTION DRUG MONITORING PROGRAM REVIEWED*: Not Applicable *COPY OF PRESCRIPTION DRUG MONITORING REPORT IN PATIENT DARLYN: Not Applicable Prescriptions: Tamsulosin HCl [Flomax] 0.4 mg PO DAILY #30 cap.er.24h Referrals: Cole Pavon MD [Primary Care Provider] - Forms: ED Department Discharge Additional Instructions: 1) continue with increased fluid intake Continue to strain urine Make appt to see your doctor Sepsis Event Note - Evaluation Sepsis Screening Result: No Definite Risk - Focused Exam Date Exam was Performed: 06/04/19 Time Exam was Performed: 18:54 - My Orders Last 24 Hours: My Active Orders 06/04/19 04:29 Abdomen Pelvis w Cont [CT] Stat - Assessment/Plan Last 24 Hours: My Active Orders 06/04/19 04:29 Abdomen Pelvis w Cont [CT] Stat
== END 2019-06-04 06:50 | disposition home or self-care (01) ==
LOC: FB.ED 03:41
DX: N20.0 Calculus of kidney (principal); N21.0 Calculus in bladder; J45.909 Unspecified asthma, uncomplicated; F17.200 Nicotine dependence, unspecified, uncomplicated; Z87.442 Personal history of urinary calculi
CPT/HCPCS: 36415; 74177; 80048; 81001; 85025; 96361; 96374; 96375; 99284-25; A9270-GY; J1170; J2270; J2930; J7030